=== PATIENT | female | born 1995 | race Caucasian/White ===

== ENCOUNTER 2016-12-09 08:35 | Emergency (ER) | payer BC ==
[2016-12-09 09:18] LABS: HEMOGLOBIN 13.9 gm/dl (12.3-15.3); RED BLOOD COUNT 4.62 M/UL (4.00-5.10); WHITE BLOOD COUNT 2.9 K/UL (4.5-11.0)
[2016-12-09 09:36] LABS: BUN/CREATININE RATIO 11 (0-10)
== END 2016-12-09 12:39 | disposition home or self-care (01) ==
LOC: ER1 08:35
PROVIDERS: Student in an Organized Health Care Education/Training Program
DX: R10.31 Right lower quadrant pain (principal); R11.2 Nausea with vomiting, unspecified; R19.7 Diarrhea, unspecified; F17.210 Nicotine dependence, cigarettes, uncomplicated; Z90.89 Acquired absence of other organs
CPT/HCPCS: 36415; 80053; 81001; 83690; 84703; 85025; 87081; 87880; 96361; 96374; 96375; 99284; J2270; J2405; J7050; Q9962

== ENCOUNTER → 2016-12-23 | Outpatient (CLI) | payer BC | LOC: CT 10:46 | DX: R10.31 Right lower quadrant pain (principal); R59.0 Localized enlarged lymph nodes | CPT/HCPCS: J7050; Q9962 ==